=== PATIENT | male | born 1990 | race African-American/Black ===

== ENCOUNTER 2020-01-04 09:11 | Emergency (ER) | payer SELFPAY ==
[~2020-01-04] VITALS: Ht 177.8 cm; Wt 82.0 kg
[~2020-01-04 09:11] MED LIST: OMEG1CAP23 PO
[2020-01-04 09:26] VITALS: BP 112/66
== END 2020-01-04 10:39 | disposition home or self-care (01) ==
LOC: ED 09:41
DX: K64.4 Residual hemorrhoidal skin tags (principal); K59.00 Constipation, unspecified
CPT/HCPCS: 99282